=== PATIENT | female | born 1995 | race African-American/Black ===

== ENCOUNTER 2018-07-06 19:17 | Emergency (ER) | payer BC ==
[2018-07-06] MEDS ORDERED: Ondansetron HCl/PF 4 MG/2 ML Vial ONE (20:21)
[2018-07-06 20:25] LABS: #Eosinphils 0.1 thou/uL (0.0-0.7); #Monocytes 0.2 thou/uL (0.11-0.59); #Neutrophils 5.1 thou/uL (1.40-6.50); %Basophils 0.3 % (0.0-1.0); %Eosinophils 1.2 % (0.0-10.0); %Lymphocytes 16.2 % (21.0-51.0); %Monocytes 2.9 % (0.0-10.0); %Neutrophils 79.4 % (42.0-75.0); Hemoglobin 12.8 g/dL (12.0-16.0); Mean Corpuscular HGB CONC 32.1 g/dL (32.0-36.0); Mean Corpuscular Hemoglobin 27.6 pg (27.0-31.0); Mean Platelet Volume 8.4 fL (7.4-10.4); Platelet Count 260 thou/uL (130-400); RBC Distribution Width 12.6 % (11.5-14.5); Red Blood Cell (RBC) Count 4.65 mill/uL (4.20-5.40); White Blood Cell (WBC) Count 6.4 thou/uL (4.8-10.8)
[2018-07-06 20:46] LABS: ALT (SGPT) 9 U/L (8-55); AST (SGOT) 15 U/L (5-34); Albumin 4.2 g/dL (3.5-5.0); Alkaline Phosphatase 72 U/L (40-150); Anion Gap 12 mmol/L (10-20); BUN (Urea Nitrogen) 11 mg/dL (7.0-18.7); Bilirubin, Total 0.3 mg/dL (0.2-1.2); Calc. Creatinine Clearance 0 mL/min (70-130); Calcium 9.5 mg/dL (7.8-10.44); Carbon Dioxide 24 mmol/L (22-29); Chloride 104 mmol/L (98-107); Estimated GFR-MDRD 76; Globulin 3.6 g/dL (2.4-3.5); Glucose 93 mg/dL (70-105); Potassium 3.9 mmol/L (3.5-5.1); Protein, Total 7.8 g/dL (6.0-8.3); Sodium 136 mmol/L (136-145)
== END 2018-07-06 21:26 | disposition home or self-care (01) ==
LOC: ERS 19:17
DX: R05 Cough (principal); T36.4X5A Adverse effect of tetracyclines, initial encounter; R11.2 Nausea with vomiting, unspecified; J20.9 Acute bronchitis, unspecified; J45.909 Unspecified asthma, uncomplicated
CPT/HCPCS: 80053; 85025; 96361; 96374; J2405

== ENCOUNTER 2021-07-24 11:42 | Emergency (ER) | payer BC ==
[2021-07-24] MEDS ORDERED: Morphine 4 MG/ML VIAL ONE ×2 (13:03→14:13)
== END 2021-07-24 14:46 | disposition home or self-care (01) ==
LOC: ERS 11:42
DX: M54.50 Low back pain, unspecified (principal); G89.29 Other chronic pain; J45.909 Unspecified asthma, uncomplicated; Z79.899 Other long term (current) drug therapy
CPT/HCPCS: 96372; 99282; J2270

== ENCOUNTER 2024-08-13 09:33 | Emergency (ER) | payer BC, SELFPAY ==
[2024-08-13] MEDS ORDERED: HYDROcodone/Acetaminophen 5/325 mg Tablet ONE (12:14)
[2024-08-13] MEDS ORDERED: Ketorolac Tromethamine 30 MG (1 mL) VIAL ONE (12:14)
[2024-08-13] MEDS ORDERED: predniSONE 20 MG TAB ONE (12:14)
== END 2024-08-13 13:10 | disposition home or self-care (01) ==
LOC: ERS 09:33
DX: M54.6 Pain in thoracic spine (principal); J45.901 Unspecified asthma with (acute) exacerbation
CPT/HCPCS: 72072; 96372; 99283; J1885; J7512